=== PATIENT | male | born 1965 | race Hispanic/Latino ===

== ENCOUNTER 2023-03-07 11:06 | Emergency (ER) | payer SELFPAY ==
[2023-03-07 12:45] LABS: #Basophils 0.1 10x3/uL (0.0-0.2); #Eosinphils 0.2 10x3/uL (0.0-0.5); #Neutrophils 5.6 10x3/uL (1.5-8.4); %Basophils 0.8 % (0.0-2.0); %Eosinophils 2.7 % (0.0-6.0); %Lymphocytes 17.7 % (18.0-47.0); %Monocytes 11.7 % (0.0-10.0); %Neutrophils 66.7 % (40.0-75.0); Hematocrit 42.9 % (38.8-50.0); Hemoglobin 14.9 g/dL (13.5-17.5); Mean Corpuscular HGB CONC 34.7 g/dL (32.0-36.0); Mean Corpuscular Hemoglobin 33.6 pg (27.0-33.0); Mean Corpuscular Volume 96.6 fl (81.2-95.1); Mean Platelet Volume 10.7 fl (7.4-10.4); Platelet Count 204 10x3/uL (150-450); RBC Distribution Width 11.9 % (11.5-14.5); Red Blood Cell (RBC) Count 4.44 10x6/uL (4.32-5.72); White Blood Cell (WBC) Count 8.4 10x3/uL (3.5-10.5)
[2023-03-07 13:07] LABS: ALT (SGPT) 127 U/L (8-55); AST (SGOT) 119 U/L (5-34); Albumin 4.2 g/dL (3.5-5.0); Alkaline Phosphatase 100 U/L (40-110); Anion Gap 14 mmol/L (10-20); BUN (Urea Nitrogen) 9 mg/dL (8.4-25.7); Bilirubin, Total 0.4 mg/dL (0.2-1.2); Calc. Creatinine Clearance 0 mL/min (70-130); Calcium 9.3 mg/dL (7.8-10.44); Carbon Dioxide 24 mmol/L (22-29); Chloride 107 mmol/L (98-107); Estimated GFR 88; Globulin 4.2 g/dL (2.4-3.5); Glucose 114 mg/dL (70-105); Lipase 75 U/L (8-78); Magnesium 1.8 mg/dL (1.6-2.6); Protein, Total 8.4 g/dL (6.0-8.3); Sodium 141 mmol/L (136-145)
== END 2023-03-07 17:21 | disposition home or self-care (01) ==
LOC: CSHERS 11:06
DX: R25.2 Cramp and spasm (principal); E86.0 Dehydration; Z87.891 Personal history of nicotine dependence
CPT/HCPCS: 80053; 82550; 83605; 83690; 83735; 85025; 96360